=== PATIENT | male | born 1945 | race Caucasian/White ===

== ENCOUNTER 2018-01-25 05:49 | Day surgery (SDC) | payer MEDICARE, OTHER ==
[2018-01-20 13:37] VITALS: BP 134/77
[~2018-01-25] VITALS: Ht 170.2 cm; Wt 90.0 kg
[~2018-01-25 05:49] MED LIST: ALBU90AE INH; ALEN70TA5 PO; ALPH100C PO; ALPH200T2 PO; APIX5TAB PO; ASCO-96 PO; ASCO500T8 PO; ASPI-496 PO; ATOR10TA9 PO; CALC-455 PO; CALC250T PO; CHOL10002 PO; CHOL200074 PO; CRAN200C2 PO; CRAN500C PO; FLAX100016 PO; FLUT100D INH; GLUC-146 PO; IPRA4AER INH; JOINT SUPPORT PO; KRIL1CAP PO; KRIL1CAP29 PO; LACT1CAP35 PO; METH750T87 PO; MULT-224 PO; Magnesium PO; OXYC-302 PO; PANT20TA3 PO; PRED10TA PO; PRED1TAB PO; PRED20TA PO; PYRI60TA PO; PYRI60TA2 PO; SAW/1TAB2 PO; SENN8.6T58 PO; TRAM50TA2 PO; UBID100C24 PO; UBID1CAP43 PO; ducolax PR
[2018-01-25] MEDS ORDERED: LACTATED RINGERS 1,000 ML IV SCH (06:29)
[2018-01-25 06:30] VITALS: BP 134/77
[2018-01-25] MEDS ORDERED: LIDOCAINE-MPF 1%, 2ML INFIL ONE (06:30)
[2018-01-25] MEDS ORDERED: LOVENOX SQ (07:04)
[2018-01-25] MEDS ORDERED: MIDAZOLAM 1 MG/ML, 2ML ONE (07:10)
[2018-01-25] MEDS ORDERED: PROPOFOL 10 MG/ML, 20ML ONE ×2 (07:10)
[2018-01-25] MEDS ORDERED: FENTANYL PF 100 MCG/2ML ONE ×2 (07:10→08:31)
[2018-01-25 07:40] LABS: INTERNATIONAL NORMALIZED RATIO 1.02 (0.93-1.1); PROTHROMBIN TIME 10.6 Seconds (9.6-11.5)
[2018-01-25] MEDS ORDERED: CEFAZOLIN 1,000 MG ONE ×2 (07:51)
[2018-01-25] MEDS ORDERED: MITOMYCIN 40 MG, WATER FOR INJECTION,STERILE 40 ML in SYRINGE 1 EA INTVESIC ONE (08:00)
[2018-01-25] MEDS ORDERED: FENTANYL PF 100 MCG/2ML IV PRN (08:00)
[2018-01-25] MEDS ORDERED: morphine SULFATE 10 MG/ML, 1ML IV PRN (08:00)
[2018-01-25] MEDS ORDERED: ALBUTEROL SULFATE 2.5 MG/3 ML NPPB PRN (08:00)
[2018-01-25] MEDS ORDERED: MIDAZOLAM 1 MG/ML, 2ML IV PRN (08:00)
[2018-01-25] MEDS ORDERED: OXYcodone 5 MG/5 ML ORAL.SOL UDC PO PRN (08:00)
[2018-01-25] MEDS ORDERED: ONDANSETRON 2MG/ML, 2ML IVPush PRN (08:00)
[2018-01-25] MEDS ORDERED: LORazepam 2 MG/ML, 1ML IVPush PRN (08:00)
[2018-01-25] MEDS ORDERED: ACETAMINOPHEN 325 MG TABLET PO PRN (08:00)
[2018-01-25] MEDS ORDERED: DEXAMETHASONE 4 MG/ML, 1ML ONE ×2 (08:19→08:20)
[2018-01-25] MEDS ORDERED: ACETAMINOPHEN 650 MG/20.3 ML UDC ONE (08:31)
[2018-01-25] MEDS ORDERED: OXYcodone 5 MG/5 ML ORAL.SOL UDC ONE (08:31)
== END 2018-01-25 11:40 ==
LOC: OUT 05:49
PROVIDERS: ATTEND Urology
DX: C67.9 Malignant neoplasm of bladder, unspecified (principal); Z72.89 Other problems related to lifestyle; Z88.8 Allergy status to other drugs, medicaments and biological substances; Z86.718 Personal history of other venous thrombosis and embolism
CPT/HCPCS: 36415; 51720; 52235; 85610; 85730; 88307; J0690; J1100; J2250; J2704; J3010; J3490; J7120

== ENCOUNTER → 2018-07-31 | Outpatient (CLI) | payer MEDICARE, OTHER ==
[~2018-07-31] MED LIST changes: +LOVENOX SQ
== END | disposition home or self-care (01) ==
LOC: CFH 10:25
PROVIDERS: ATTEND Urology
DX: N28.1 Cyst of kidney, acquired (principal); Z85.51 Personal history of malignant neoplasm of bladder
CPT/HCPCS: 76770

== ENCOUNTER 2019-08-06 10:43 | Outpatient (CLI) | payer MEDICARE, OTHER ==
[~2019-08-06 10:43] MED LIST changes: -ALEN70TA5 PO; +ALEN70TA6 PO; -KRIL1CAP PO; +KRIL1CAP7 PO; -MULT-224 PO; +MULT-642 PO; -PRED1TAB PO; +PRED1TAB19 PO
== END 2019-08-06 23:59 | disposition home or self-care (01) ==
LOC: CFH 10:43
PROVIDERS: ATTEND Internal Medicine Cardiovascular Disease
DX: I07.1 Rheumatic tricuspid insufficiency (principal); G70.00 Myasthenia gravis without (acute) exacerbation; F10.21 Alcohol dependence, in remission; E78.5 Hyperlipidemia, unspecified
CPT/HCPCS: 93306

== ENCOUNTER 2020-03-24 10:59 | Outpatient (CLI) | payer MEDICARE, OTHER ==
[~2020-03-24 10:59] MED LIST changes: +REGADENOSON 0.4 MG/5 ML SYRINGE ONE
== END 2020-03-24 23:59 | disposition home or self-care (01) ==
LOC: CFH 10:59
PROVIDERS: ATTEND Internal Medicine Cardiovascular Disease
DX: I07.1 Rheumatic tricuspid insufficiency (principal); I45.19 Other right bundle-branch block
CPT/HCPCS: 78452; 93017; 93306; A9502; J2785

== ENCOUNTER 2020-04-09 09:46 | Day surgery (SDC) | payer MEDICARE, OTHER ==
[~2020-04-09] VITALS: Ht 170.2 cm; Wt 84.1 kg
[~2020-04-09 09:46] MED LIST changes: -REGADENOSON 0.4 MG/5 ML SYRINGE ONE
[2020-04-09] MEDS ORDERED: PRED20TA PO (10:27)
[2020-04-09] MEDS ORDERED: PYRI60TA2 PO (10:27)
[2020-04-09] MEDS ORDERED: MILK140C PO (10:31)
[2020-04-09 10:32] VITALS: BP 137/78
[2020-04-09 10:42] LABS: BASOPHILS # (AUTO) 0.01 x10^3/uL (0-0.1); BASOPHILS % (AUTO) 0 % (0-1); EOSINOPHILS # (AUTO) 0.01 x10^3/uL (0-0.4); EOSINOPHILS % (AUTO) 0 % (1-7); LYMPHOCYTES # (AUTO) 0.63 x10^3/uL (1-3.4); LYMPHOCYTES % (AUTO) 9 % (22-44); MD NO; MEAN CORPUSCULAR HEMOGLOBIN 30.9 pg (27.5-34.5); MEAN CORPUSCULAR HGB CONC 32.8 g/dL (33.2-36.2); MEAN CORPUSCULAR VOLUME 94.1 fL (81-97); MEAN PLATELET VOLUME 9.2 fL (7.4-10.4); MONOCYTES # (AUTO) 0.08 x10^3/uL (0.2-0.8); MONOCYTES % (AUTO) 1 % (2-9); NEUTROPHILS # (AUTO) 6.34 x10^3/uL (1.8-6.8); NEUTROPHILS % (AUTO) 90 % (42-75); PLATELET COUNT 208 x10^3/uL (130-400); RED BLOOD COUNT 4.74 x10^6/uL (4.38-5.82); RED CELL DISTRIBUTION WIDTH 14.1 % (9.4-14.8)
[2020-04-09 10:48] LABS: CALCIUM 8.8 mg/dL (8.5-10.1); CHLORIDE 116 mmol/L (98-107)
[2020-04-09 10:49] LABS: CREATININE 0.83 mg/dL (0.7-1.3)
[2020-04-09] MEDS ORDERED: LIDOCAINE-MPF 1%, 5ML ONE (10:58)
[2020-04-09] MEDS ORDERED: MIDAZOLAM 1 MG/ML, 5ML ONE (10:58)
[2020-04-09] MEDS ORDERED: VERAPAMIL 2.5 MG/ML, 2ML ONE (10:58)
[2020-04-09] MEDS ORDERED: FENTANYL PF 100 MCG/2ML ONE (10:58)
[2020-04-09] MEDS ORDERED: HEPARIN 1,000 UNITS/ML, 10ML ONE (10:59)
[2020-04-09 11:02] LABS: ANION GAP 6 mmol/L (5-15)
[2020-04-09] MEDS ORDERED: SODIUM CHLORIDE 0.9% 1,000 ML IV SCH (12:14)
== END 2020-04-09 14:51 | disposition home or self-care (01) ==
LOC: CACL 09:46
PROVIDERS: ATTEND Internal Medicine Cardiovascular Disease
DX: R93.1 Abnormal findings on diagnostic imaging of heart and coronary circulation (principal); K21.9 Gastro-esophageal reflux disease without esophagitis; J45.909 Unspecified asthma, uncomplicated; E78.5 Hyperlipidemia, unspecified; G70.00 Myasthenia gravis without (acute) exacerbation; G47.33 Obstructive sleep apnea (adult) (pediatric); F41.9 Anxiety disorder, unspecified; F32.9 Major depressive disorder, single episode, unspecified; Z88.8 Allergy status to other drugs, medicaments and biological substances; Z79.01 Long term (current) use of anticoagulants; Z79.899 Other long term (current) drug therapy; Z72.89 Other problems related to lifestyle; Z86.718 Personal history of other venous thrombosis and embolism; Z85.828 Personal history of other malignant neoplasm of skin; Z96.641 Presence of right artificial hip joint; Z98.890 Other specified postprocedural states; Z85.51 Personal history of malignant neoplasm of bladder; Z86.73 Personal history of transient ischemic attack (TIA), and cerebral infarction without residual deficits; Z82.49 Family history of ischemic heart disease and other diseases of the circulatory system; Z83.3 Family history of diabetes mellitus; Z80.3 Family history of malignant neoplasm of breast
CPT/HCPCS: 36415; 80048; 85025; 93458; 99156; C1769; C1894; J1644; J2250; J3010; Q9967